=== PATIENT | male | born 2000 | race Caucasian/White ===

== ENCOUNTER 2021-12-13 01:43 | Inpatient (IN) | payer BC ==
[~2021-12-13] VITALS: Ht 182.9 cm; Wt 79.1 kg
[2021-12-13 04:30] LABS: AMPHET/METH SCREEN,URINE NEGATIVE (NEGATIVE); BARBITURATE SCREEN, URINE NEGATIVE (NEGATIVE); BENZODIAZEPINES SCREEN,URINE NEGATIVE (NEGATIVE); CANNABINOID SCREEN,URINE POSITIVE (NEGATIVE); COCAINE SCREEN,URINE NEGATIVE (NEGATIVE); METHADONE SCREEN, URINE NEGATIVE (NEGATIVE); OPIATE SCREEN,URINE NEGATIVE (NEGATIVE)
[2021-12-13 04:31] LABS: PHENCYCLIDINE SCREEN,URINE NEGATIVE (NEGATIVE)
[2021-12-13 05:30] LABS: COVID AG,FIA SOURCE NASAL SWAB
[2021-12-13 05:34] LABS: APPEARANCE,URINE CLEAR (CLEAR); BILIRUBIN,URINE NEGATIVE (NEGATIVE); GLUCOSE, URINE (UA) NEGATIVE (NEGATIVE); LEUKOCYTE ESTERASE ,URINE SMALL (NEGATIVE); NITRATE,URINE NEGATIVE (NEGATIVE); OCCULT BLOOD,URINE NEGATIVE (NEGATIVE); PROTEIN,URINE NEGATIVE (NEGATIVE); SPECIFIC GRAVITIY, URINE 1.021 (1.003-1.030); UROBILINOGEN,URINE <=1.0 mg/dL (<=1.0)
[2021-12-13] MEDS: LORazepam 2 MG TABLET PO PRN ×2 (05:45→16:53)
[2021-12-13 05:51] LABS: BACTERIA,URINE None Seen /HPF (None Seen); RBC,URINE 0-2 /HPF (0-2)
[2021-12-13 06:01] LABS: BASOPHILS % (AUTO) 0.7 % (0.0-2.0); EOSINOPHILS % (AUTO) 2.2 % (1.0-6.0); HEMATOCRIT 43.3 % (41-53); HEMOGLOBIN 14.7 g/dL (13.5-17.5); LYMPHOCYTES # (AUTO) 2.5 K/uL (1.0-4.8); LYMPHOCYTES % (AUTO) 32.7 % (22.0-44.0); MEAN CORPUSCULAR HEMOGLOBIN 29.3 pg (26.0-34.0); MEAN CORPUSCULAR HGB CONC 34.1 G/dL (31.0-37.0); MEAN CORPUSCULAR VOLUME 86 fL (80-100); MONOCYTES # (AUTO) 0.7 K/uL (0.1-1.0); MONOCYTES % (AUTO) 8.8 % (2.0-9.0); NEUTROPHILS # (AUTO) 4.3 K/uL (1.8-7.7); NEUTROPHILS % (AUTO) 55.6 % (40.0-70.0); PLATELET COUNT (AUTO) 205 K/uL (150-450); RED BLOOD CELL COUNT(AUTO) 5.04 MIL/uL (4.50-5.90); RED CELL DISTRIBUTION WIDTH 13.6 % (11.5-14.5)
[2021-12-13 06:09] LABS: ANION GAP 4 mmol/L (8-16); CARBON DIOXIDE 32 mmol/L (22-29); CHLORIDE 103 mmol/L (98-107); CREATININE 1.16 mg/dL (0.60-1.30); GLUCOSE,RANDOM 104 mg/dL (70-110); SODIUM SERUM 139 mmol/L (136-145); UREA NITROGEN, BLOOD 13 mg/dL (7-18)
[2021-12-13 06:15] LABS: ALANINE AMINOTRANSFERASE 18 U/L (12-78); ALBUMIN 4.6 g/dL (3.4-5.0); ALKALINE PHOSPHATASE 90 U/L (46-116); ASPARTATE AMINOTRANSFERASE 16 U/L (15-37); BILIRUBIN,TOTAL 0.8 mg/dL (0.1-1.0); TOTAL PROTEIN, SERUM 7.6 g/dL (6.4-8.2)
[2021-12-13 06:23] LABS: GLOMERULAR FILTR. RATE CALC > 60 mL/min (>60)
[2021-12-13] MEDS ORDERED: HydrOXYzine PAMOATE 50 MG CAPSULE PO PRN (11:00)
[2021-12-13] MEDS ORDERED: TUBERCULIN, PURIFIED PROTEIN DERIVATIVE 5 TU/0.1 ML SYRINGE ID ONE (11:00)
[2021-12-13] MEDS ORDERED: GuaiFENesin/D-METHORPHAN [SUGAR-FREE] 200-20MG/10 ML SYRUP UDCUP PO PRN (11:00)
[2021-12-13] MEDS ORDERED: ACETAMINOPHEN 325 MG TABLET PO PRN (11:00)
[2021-12-13] MEDS ORDERED: MAG HYDROX/AL HYDROX/SIMETH ES 30 ML SUSPENSION UDCUP PO PRN (11:00)
[2021-12-13] MEDS ORDERED: PROMETHAZINE HCL 25 MG TABLET PO PRN (11:00)
[2021-12-13] MEDS ORDERED: LOPERAMIDE HCL 2 MG CAPSULE PO PRN (11:00)
[2021-12-13] MEDS ORDERED: MAGNESIUM HYDROXIDE SUSPENSION 30 ML UDCUP PO PRN (11:00)
[2021-12-13 11:24] VITALS: BP 143/76
[2021-12-13 16:22] VITALS: BP 129/74
[2021-12-13] MEDS: THIAMINE 100 MG TABLET PO SCH (16:53)
[2021-12-13] MEDS: DIVALPROEX SODIUM 500 MG ER TABLET PO SCH (20:41)
[2021-12-13] MEDS: ZOLPIDEM TARTRATE 10 MG TABLET PO PRN (20:42)
[2021-12-13] MEDS: MELATONIN 5 MG TABLET PO SCH (20:43)
[2021-12-14 05:08] VITALS: BP 118/65
[2021-12-14 07:37] LABS: CHOL/HDL RATIO 2.7 (4.2-7.3); FREE T4 (FREE THYROXINE) 1.54 ng/dL (0.76-1.46); THYROID STIMULATING HORMONE 1.18 uIU/mL (0.36-3.74)
[2021-12-14] MEDS: THIAMINE 100 MG TABLET PO SCH ×2 (08:17→16:39)
[2021-12-14] MEDS: NITROFURANTOIN MONOHYD/M-CRYST 100 MG CAPSULE [MACROBID] PO SCH ×2 (08:17→16:39)
[2021-12-14] MEDS: FLUoxetine HCL 20 MG CAPSULE PO SCH (08:17)
[2021-12-14] MEDS: FOLIC ACID 1 MG TABLET PO SCH (08:17)
[2021-12-14] MEDS: NALTREXONE HCL 50 MG TABLET PO SCH (08:17)
[2021-12-14] MEDS: LORazepam 2 MG TABLET PO PRN ×3 (08:17→20:55)
[2021-12-14] MEDS: OMEGA-3/DHA/EPA/FISH OIL 1,000 MG CAPSULE PO SCH (08:17)
[2021-12-14] MEDS: MULTIVITAMINS WITH MINERALS, THERAPEUTIC TABLET PO SCH (08:17)
[2021-12-14 08:33] VITALS: BP 141/72
[2021-12-14 16:00] VITALS: BP 136/80
[2021-12-14 20:36] VITALS: BP 130/68
[2021-12-14] MEDS: DIVALPROEX SODIUM 500 MG ER TABLET PO SCH (20:54)
[2021-12-14] MEDS: MELATONIN 5 MG TABLET PO SCH (20:54)
[2021-12-14] MEDS: ZOLPIDEM TARTRATE 10 MG TABLET PO PRN (20:55)
[2021-12-15] MEDS: FLUoxetine HCL 20 MG CAPSULE PO SCH (09:00)
[2021-12-15] MEDS: MULTIVITAMINS WITH MINERALS, THERAPEUTIC TABLET PO SCH (09:00)
[2021-12-15] MEDS: NITROFURANTOIN MONOHYD/M-CRYST 100 MG CAPSULE [MACROBID] PO SCH ×2 (09:00→17:01)
[2021-12-15] MEDS: OMEGA-3/DHA/EPA/FISH OIL 1,000 MG CAPSULE PO SCH (09:00)
[2021-12-15] MEDS: THIAMINE 100 MG TABLET PO SCH ×2 (09:00→17:01)
[2021-12-15] MEDS: FOLIC ACID 1 MG TABLET PO SCH (09:00)
[2021-12-15] MEDS: NALTREXONE HCL 50 MG TABLET PO SCH (09:00)
[2021-12-15 09:40] VITALS: BP 132/73
[2021-12-15] MEDS: OLANZapine 5 MG RAPDIS TABLET PO PRN (17:02)
[2021-12-15] MEDS: LORazepam 2 MG TABLET PO PRN (17:02)
[2021-12-15 20:16] VITALS: BP 118/70
[2021-12-15] MEDS: MELATONIN 5 MG TABLET PO SCH (20:43)
[2021-12-15] MEDS: DIVALPROEX SODIUM 500 MG ER TABLET PO SCH (20:44)
[2021-12-16] MEDS: THIAMINE 100 MG TABLET PO SCH ×2 (08:19→16:56)
[2021-12-16] MEDS: MULTIVITAMINS WITH MINERALS, THERAPEUTIC TABLET PO SCH (08:19)
[2021-12-16] MEDS: FOLIC ACID 1 MG TABLET PO SCH (08:19)
[2021-12-16] MEDS: OMEGA-3/DHA/EPA/FISH OIL 1,000 MG CAPSULE PO SCH (08:19)
[2021-12-16] MEDS: NALTREXONE HCL 50 MG TABLET PO SCH (08:19)
[2021-12-16] MEDS: FLUoxetine HCL 20 MG CAPSULE PO SCH (08:20)
[2021-12-16] MEDS: NITROFURANTOIN MONOHYD/M-CRYST 100 MG CAPSULE [MACROBID] PO SCH ×2 (08:20→16:56)
[2021-12-16 08:26] VITALS: BP 113/83
[2021-12-16] MEDS: OLANZapine 5 MG RAPDIS TABLET PO PRN (16:56)
[2021-12-16] MEDS: LORazepam 2 MG TABLET PO PRN (16:56)
[2021-12-16 20:00] VITALS: BP 117/66
[2021-12-16] MEDS: ZOLPIDEM TARTRATE 10 MG TABLET PO PRN (20:23)
[2021-12-16] MEDS: MELATONIN 5 MG TABLET PO SCH (20:23)
[2021-12-16] MEDS: DIVALPROEX SODIUM 500 MG ER TABLET PO SCH (20:23)
[2021-12-17 08:10] VITALS: BP 130/64
[2021-12-17] MEDS: NITROFURANTOIN MONOHYD/M-CRYST 100 MG CAPSULE [MACROBID] PO SCH ×2 (08:21→15:59)
[2021-12-17] MEDS: OMEGA-3/DHA/EPA/FISH OIL 1,000 MG CAPSULE PO SCH (08:21)
[2021-12-17] MEDS: THIAMINE 100 MG TABLET PO SCH ×2 (08:21→15:59)
[2021-12-17] MEDS: NALTREXONE HCL 50 MG TABLET PO SCH (08:21)
[2021-12-17] MEDS: FLUoxetine HCL 20 MG CAPSULE PO SCH (08:21)
[2021-12-17] MEDS: MULTIVITAMINS WITH MINERALS, THERAPEUTIC TABLET PO SCH (08:21)
[2021-12-17] MEDS: FOLIC ACID 1 MG TABLET PO SCH (08:21)
[2021-12-17] MEDS: DIVALPROEX SODIUM 500 MG ER TABLET PO SCH (21:00)
[2021-12-17] MEDS: MELATONIN 5 MG TABLET PO SCH (21:12)
[2021-12-18] VITALS: BP 121/64
[2021-12-18] MEDS: NALTREXONE HCL 50 MG TABLET PO SCH (09:00)
[2021-12-18] MEDS: FLUoxetine HCL 20 MG CAPSULE PO SCH (09:00)
[2021-12-18] MEDS: FOLIC ACID 1 MG TABLET PO SCH (09:20)
[2021-12-18] MEDS: THIAMINE 100 MG TABLET PO SCH ×2 (09:20→16:50)
[2021-12-18] MEDS: NITROFURANTOIN MONOHYD/M-CRYST 100 MG CAPSULE [MACROBID] PO SCH ×2 (09:20→16:52)
[2021-12-18] MEDS: OMEGA-3/DHA/EPA/FISH OIL 1,000 MG CAPSULE PO SCH (09:20)
[2021-12-18] MEDS: MULTIVITAMINS WITH MINERALS, THERAPEUTIC TABLET PO SCH (09:20)
[2021-12-18 09:31] VITALS: BP 123/84
[2021-12-18 17:38] VITALS: BP 142/81
[2021-12-18] MEDS: DIVALPROEX SODIUM 500 MG ER TABLET PO SCH (20:50)
[2021-12-18] MEDS: MELATONIN 5 MG TABLET PO SCH (20:50)
[2021-12-18 23:39] VITALS: BP 145/85
[2021-12-19 08:08] VITALS: BP 135/85
[2021-12-19] MEDS: NALTREXONE HCL 50 MG TABLET PO SCH (08:20)
[2021-12-19] MEDS: MULTIVITAMINS WITH MINERALS, THERAPEUTIC TABLET PO SCH (08:20)
[2021-12-19] MEDS: THIAMINE 100 MG TABLET PO SCH ×2 (08:20→17:13)
[2021-12-19] MEDS: FOLIC ACID 1 MG TABLET PO SCH (08:20)
[2021-12-19] MEDS: OMEGA-3/DHA/EPA/FISH OIL 1,000 MG CAPSULE PO SCH (08:20)
[2021-12-19] MEDS: FLUoxetine HCL 20 MG CAPSULE PO SCH (08:20)
[2021-12-19 20:14] VITALS: BP 120/66
[2021-12-19] MEDS: MELATONIN 5 MG TABLET PO SCH (20:20)
[2021-12-19] MEDS: DIVALPROEX SODIUM 500 MG ER TABLET PO SCH (20:20)
[2021-12-19] MEDS: ZOLPIDEM TARTRATE 10 MG TABLET PO PRN (20:20)
[2021-12-19] MEDS ORDERED: FLUO20CA36 PO (22:11)
[2021-12-19] MEDS ORDERED: OMEG-108 PO (22:11)
[2021-12-19] MEDS ORDERED: DIVA-80 PO (22:12)
[2021-12-19] MEDS ORDERED: NALT50TA6 PO (22:12)
[2021-12-19] MEDS ORDERED: MELA5TAB40 PO (22:13)
[2021-12-19] MEDS: LORazepam 2 MG TABLET PO PRN (23:43)
[2021-12-19] MEDS: OLANZapine 5 MG RAPDIS TABLET PO PRN (23:44)
[2021-12-20] MEDS: FOLIC ACID 1 MG TABLET PO SCH (08:09)
[2021-12-20] MEDS: THIAMINE 100 MG TABLET PO SCH (08:09)
[2021-12-20] MEDS: MULTIVITAMINS WITH MINERALS, THERAPEUTIC TABLET PO SCH (08:09)
[2021-12-20] MEDS: FLUoxetine HCL 20 MG CAPSULE PO SCH (08:09)
[2021-12-20] MEDS: OMEGA-3/DHA/EPA/FISH OIL 1,000 MG CAPSULE PO SCH (08:10)
[2021-12-20] MEDS: NALTREXONE HCL 50 MG TABLET PO SCH (08:10)
[2021-12-20 08:11] VITALS: BP 138/79
== END 2021-12-20 11:39 | disposition home or self-care (01) | DRG 885 ==
LOC: EMS 01:43 → B3A 06:24
PROVIDERS: ADMIT Psychiatry & Neurology Psychiatry; ATTEND Psychiatry & Neurology Psychiatry
DX: F31.81 Bipolar II disorder (principal); F14.20 Cocaine dependence, uncomplicated; N39.0 Urinary tract infection, site not specified; F10.10 Alcohol abuse, uncomplicated; F12.20 Cannabis dependence, uncomplicated; F17.210 Nicotine dependence, cigarettes, uncomplicated; G47.00 Insomnia, unspecified; Z20.822 Contact with and (suspected) exposure to COVID-19; Z56.0 Unemployment, unspecified; Z79.899 Other long term (current) drug therapy; Z68.23 Body mass index [BMI] 23.0-23.9, adult
CPT/HCPCS: 80053; 80061; 80164; 81001; 83036; 84439; 84443; 85025; 86592; 87081; 87086; 99285; G0480; Q9967